=== PATIENT | male | born 1995 | race Two or more races ===

== ENCOUNTER 2025-06-15 14:25 | Emergency (ER) | payer MEDICAID, SELFPAY ==
[2025-06-15 14:26] VITALS: BMI 33.3
[2025-06-15 15:16] VITALS: BP 131/74; PULSE 83; RESP 18; TEMP 37.1; O2SAT 96
--- NOTE | 2025-06-15 15:21 | EDNOTE_ITS ---
ED Skin Abcess FB-RME/HPI General Chief complaint: Skin/Abscess/Foreign Body Stated complaint: SKIN ABCESS LLQ Time Seen by Provider: 06/15/25 14:44 Arrival date/time: 06/15/25 14:25 RME / HPI RME / HPI narrative: 29-year-old male patient came in for evaluation regarding redness to the left lower quadrant abdominal wall. Incident happened about 3 days prior to ER visit as worsening redness, after patient self inject himself with testosterone. Patient has been injecting himself testosterone for a while now. But today noticed first time having this redness and swelling. Patient denies any fever. Denies any abdominal pain. Denies any vomiting. Patient is worried about abscess or cellulitis of the abdominal wall. No history of diabetes. Tetanus vaccination is unknown. Related Data Previous Rx's ?Medication ?Instructions ?Recorded cephalexin 500 mg capsule 500 mg PO Q6H 7 days #28 cap s 06/15/25 ibuprofen 800 mg tablet 800 mg PO Q8H PRN pain #30 t abs 06/15/25 sulfamethoxazole 800 1 tab PO BID #14 tabs mg-trimethoprim 160 mg tablet (Bactrim DS) Allergies Allergy/AdvReac Type Severity Reaction Status Date / Time No Known Allergies Allergy Verified 06/15/25 14:30 Review of Systems Review of Systems Narrative Review of Systems: Review of system reviewed and within normal limits except mentioned in HPI ED Exam Narrative Physical exam: VITAL SIGNS: Reviewed. GENERAL APPEARANCE: Alert and interactive, follows commands, no acute distress, HEAD AND FACE: Non-traumatic. ENT: PERRL, pink conjunctivitis, eyelid no trauma, Mucous membrane moist. NECK: Supple, nontender, no nuchal rigidity. CHEST: No tenderness, no crepitus, no paradoxical movement, no retractions. LUNGS: Clear, well ventilated, symmetric, no rales, no wheezing, no ronchi, no stridor, good breath sounds bilaterally. HEART: Regular rate, regular rhythm, no murmur, no gallops. ABDOMEN: Soft, positive bowel sounds, nondistended, no guarding, 5 x 6 cm redness, left lower abdominal wall none fluctuant with mild tenderness, no rebound, no masses, RECTAL: Deferred. GENITAL: Deferred. NEUROLOGICAL: Gross motor function intact sensory function intact, Appropriate for age. MUSCULOSKELETAL: low back nontender, full range of motion. EXTREMITIES: Nontender, full range of motion. SKIN: Color pink, dry, no rash, no lacerations, no abrasions, no contusions. LYMPHATICS: Deferred. Course Quality Measures none Orders Category Date Time Status Ibuprofen Tab [Motrin Tab] Med 06/15/25 15:20 Once 800 mg PO X1 ONE TET,DIP/PERT AC (Adult)-Tdap [Boostrix Adult (Tdap) Med 06/15/25 15:20 Once Vacc] 0.5 ml IMI .ONCE ONE Trimethoprim/Sulfa 160/800 Ds [Bactrim Ds] Med 06/15/25 15:20 Once 1 tab PO X1 ONE cephALEXin [Keflex] Med 06/15/25 15:20 Once 500 mg PO X1 ONE Vital Signs Vital signs: Vital Signs Temperature 98.7 F 06/15/25 15:16 Pulse Rate 83 06/15/25 15:16 Respiratory Rate 18 06/15/25 15:16 Blood Pressure 131/74 H 06/15/25 15:16 Pulse Oximetry (%) 96 06/15/25 15:16 Oxygen Delivery Method Room Air 06/15/25 15:16 Skin / Abscess / Foreign Body MDM Narrative MDM Narrative:: 29-year-old male patient came in for evaluation regarding redness to the left lower quadrant abdominal wall. Incident happened about 3 days prior to ER visit as worsening redness, after patient self inject himself with testosterone. Patient has been injecting himself testosterone for a while now. But today noticed first time having this redness and swelling. Patient denies any fever. Denies any abdominal pain. Denies any vomiting. Patient is worried about abs cess or cellulitis of the abdominal wall. No history of diabetes. Tetanus vaccination is unknown. Clinically patient is having cellulitis of the left lower abdominal wall nonfluctuant I&D is not needed at this time. Patient will be started on antibiotic and advised to come back in 2 to 3 days for possible I&D. Patient agrees with the plan. Imaging or workup is not needed at this time. Stable for discharge home Patient data External records reviewed:: None Clinical information provided by:: patient Social determinants that could affect healthcare access:: none Patient has the following chronic illnesses:: None How is presenting disease/condition affected by chronic disease/condition?: no chronic disease Evaluation data The following diagnostics were reviewed and interpreted by me:: other (specify) (None) Lab and/or radiology exams considered but not ordered:: None Interpretation Summary: None Medications / Prescriptions Medications or Prescriptions considered but not ordered:: None Medication administrations:: Medication Administration History Cephalexin HCl (Cephalexin 250 Mg Capsule) 500 mg PO X1 ONE Stop: 06/15/25 15:21 Diphtheria/Tetanus/Acell Pertussis (Diphth,Pertuss(Acell),Tet Vac 0.5 Ml Syr- Adult) 0.5 ml IMi .ONCE ONE Stop: 06/15/25 15:21 Ibuprofen (Ibuprofen Tab 400 Mg Tablet) 800 mg PO X1 ONE Stop: 06/15/25 15:21 Trimethoprim/Sulfamethoxazole (Trimethoprim/Sulfa 160/800 Ds Tablet) 1 tab PO X1 ONE Stop: 06/15/25 15:21 Keflex Bactrim Motrin and Boostrix Consultations Consultation(s) initiated? (list below): No Diagnosis Skin/Abscess Differential Diagnosis: abscess of skin or subcutaneous tissue, cellulitis and insect bites Most likely diagnosis given after review of the tests above:: Abdominal wall cellulitis Admission Indicated Admission indicated?: not indicated Admission Request Was there a request for admission?: No Disposition Plan Disposition Plan: Discharge Discharge Attestation Discharge Attestation: The patient and all family members were given an opportunity to ask questions and understood the discharge instructions. Discharge instructions specifically effects, indications for sooner follow up or return to the emergency department, and the expected course of current diagnosis. Patient condition: Stable Discharge Plan Plan Patient Disposition: HOME (Self Care) Discharge Disposition comment: Stable Prescriptions/Referrals Prescriptions/Med Rec: New ibuprofen 800 mg tablet 800 mg PO Q8H PRN (Reason: pain) Qty: 30 0RF sulfamethoxazole-trimethoprim [Bactrim DS] 800-160 mg tablet 1 tab PO BID Qty: 14 0RF cephalexin 500 mg capsule 500 mg PO Q6H 7 Days Qty: 28 0RF Problem List Clinical Impression: Cellulitis of left abdominal wall Patient/Caregiver Discharge Instructions Discharge Activity: activity as tolerated Education Materials: Discharge Instructions for Cellulitis Additional Instructions: Thank you for the opportunity for serving you today. You are stable for discharged . You are advised to: Follow-up with your PCP in 1 to 2 days Return to ED for worsening of symptoms Increase oral fluids Take medication as prescribed Return to emergency room in 2 to 3 days for possible I&D Print Language: Vietnamese Stand Alone Forms: Nirmala Award Info., Patient Portal Info Letter PRERNA/[employer] Supervising Physician PRERNA/ANDREA Supervising Physician: MD Cindy
[2025-06-15] MEDS: TRIMETHOPRIM/SULFA 160/800 DS TABLET 1 TAB PO (15:37)
[2025-06-15] MEDS: IBUPROFEN TAB 400 MG TABLET 800 MG PO (15:38)
[2025-06-15] MEDS: DIPHTH,PERTUSS(ACELL),TET VAC 0.5 ML SYR- ADULT IMi (15:39)
== END 2025-06-15 16:38 | disposition home or self-care (01) ==
LOC: SERX 15:50
PROVIDERS: Emergency Provider Emergency Medicine
DX: L03.311 Cellulitis of abdominal wall (principal); Z23 Encounter for immunization
CPT/HCPCS: 90471; 90715; 99283; A9270

== ENCOUNTER 2025-09-09 14:00 | Emergency (ER) | payer MEDICAID, SELFPAY ==
--- NOTE | 2025-09-09 14:41 | PD.EDADULT ---
ED General RME/HPI General Chief complaint: Abdominal Pain Stated complaint: DIARRHEA, BLACK THIS AM, UPPER ABD PAIN, CHILLS Time Seen by Provider: 09/09/25 14:40 Arrival date/time: 09/09/25 14:00 CC: Nausea vomiting diarrhea since midnight. HPI ongoing with diarrhea every 15 minutes. Patient had threw up twice, last time at 5 1 AM this morning. No other family members are ill patient is borderline tachycardic with normal pressure. Patient appears not in any acute distress. No OTC medicines taken. Related Data Previous Rx's ?Medication ?Instructions ?Recorded ibuprofen 800 mg tablet 800 mg PO Q8H PRN pain #30 tabs 06/15/25 sulfamethoxazole 800 1 tab PO BID #14 tabs 06/15/25 mg-trimethoprim 160 mg tablet (Bactrim DS) ondansetron 4 mg disintegrating 4 mg PO Q8H #10 tabs 09/09/25 tablet Allergies Allergy/AdvReac Type Severity Reaction Status Date / Time No Known Allergies Allergy Verified 09/09/25 14:04 Review of Systems Review of Systems Narrative Review of Systems: GEN: No fever, no chills, no weight loss EYES: No discharge, no visual changes, no pain HEENT: No ear pain, no congestion, no sore throat PULM: No shortness of breath, no cough, no congestion CV: No chest pain, no dyspnea on exertion, no palpitations GI: + nausea, + vomiting, + diarrhea, no pain, no constipation : No frequency, no urgency, no dysuria MUSC/SKEL: No joint pain, no back pain SKIN: No rash PSYCH: No hallucinations, no depression HEME/LYMPH: No easy bleeding or bruising tendencies NEURO: No weakness, no headache Course Course Course Narrative: There is no acute finding. Patient will be discharged home Quality Measures none Orders Category Date Time Status B-Type Natriuretic Peptide Stat Lab 09/09/25 14:55 Completed CBC Stat Lab 09/09/25 14:55 Completed Comprehensive Metabolic Panel Stat Lab 09/09/25 14:55 Completed Drug Screen,Urine Stat Lab 09/09/25 14:41 Ordered Lipase Stat Lab 09/09/25 14:55 Completed Magnesium Stat Lab 09/09/25 14:55 Completed Partial Thromboplastin Time Stat Lab 09/09/25 14:55 Completed Prothrombin Time with INR Stat Lab 09/09/25 14:55 Completed Urinalysis, C/S if Indicated Stat Lab 09/09/25 14:41 Ordered Ondansetron Odt [Zofran Odt] Med 09/09/25 14:42 Discontinued 4 mg PO X1 ONE Vital Signs Vital signs: Vital Signs Temperature 98.1 F 09/09/25 14:46 Pulse Rate 96 09/09/25 14:46 Respiratory Rate 18 09/09/25 14:46 Blood Pressure 126/84 09/09/25 14:46 Pulse Oximetry (%) 97 09/09/25 14:46 Oxygen Delivery Method Room Air 09/09/25 14:46 Discharge Plan Plan Patient Disposition: HOME (Self Care) Patient condition on transfer: Stable Prescriptions/Referrals Prescriptions/Med Rec: New ondansetron 4 mg tablet,disintegrating 4 mg PO Q8H Qty: 10 0RF No Action ibuprofen 800 mg tablet 800 mg PO Q8H PRN (Reason: pain) Qty: 30 0RF sulfamethoxazole-trimethoprim [Bactrim DS] 800-160 mg tablet 1 tab PO BID Qty: 14 0RF Referrals: Ever (KAILA)Leila FNP [Primary Care Provider] - In 1 week Problem List Clinical Impression: Nausea & vomiting, Diarrhea Patient/Caregiver Discharge Instructions Education Materials: ED Vomiting (Adult), ED Vomiting and Diarrhea ... Additional Instructions: Rest eat bland foods take the medication as needed for nausea. Follow-up with your primary care doctor. Print Language: Polish Stand Alone Forms: Nirmala Award Info., Patient Portal Info Letter, Work/School Release PRERNA/ANDREA Supervising Physician PRERNA/ANDREA Supervising Physician: Ashley Spencer ENP [facility] Clinical Information Provided by: patient Medical Records reviewed [facility] Meds/Rx considered, not ordered None Labs/Rad/Tests considered, not ordered None Chronic Illness/Social Conditions which may negatively complicate care or outcome(s)-explain: None or not applicable EKG EKG not done Labs Labs: interpreted by il Lab(s) Interpretation(s): CBC shows mild leukocytosis of 12.3 no anemia or thrombocytopenia Coags within acceptable limits CMP shows no significant electrolyte imbalances renal impairment transaminitis or T. bili elevation. Imaging Imaging interpretation: none Medication Administration(s) Medication Administration History Discontinued Medications Ondansetron HCl (Ondansetron Odt 4 Mg Tabrap) 4 mg PO X1 ONE; Protocol Stop: 09/09/25 14:43 Last Admin: 09/09/25 16:07 Dose: 4 mg Documented By: LP Diagnosis Differential Diagnosis ED Complaint MDM: Gastritis, food poisoning, pancreatitis, cholelithiasis
[2025-09-09 14:46] VITALS: BP 126/84; PULSE 96; RESP 18; TEMP 36.7; O2SAT 97; BMI 30.1
[2025-09-09 15:23] LABS: Basophils # (Auto) 0.0 Thou/mm3 (0.0-0.2); Basophils % (Auto) 0 % (0-2.5); Eosinophils # (Auto) 0.0 Thou/mm3 (0.0-0.5); Eosinophils % (Auto) 0 % (0-10); Hematocrit 50.0 % (41.0-53.0); Hemoglobin 16.9 g/dL (13.5-16.0); Immature Granulocytes Auto 0.04 Thou/mm3 (0.00-0.00); Lymphocytes # (Auto) 0.6 Thou/mm3 (1.0-4.8); Lymphocytes % (Auto) 5 % (10-50); Mean Corpuscular HGB Conc 33.8 g/dl (31.0-37.0); Mean Corpuscular Hemoglobin 28.7 pg (25.0-35.0); Mean Corpuscular Volume 85 fL (80-100); Monocytes # (Auto) 0.5 Thou/mm3 (0.0-0.8); Monocytes % (Auto) 4 % (0-12); Neutrophils # (Auto) 11.1 Thou/mm3 (1.8-7.7); Neutrophils % (Auto) 91 % (37-80); Nucleated Red Blood Cell # 0.00 Thou/mm3 (0.00-0.00); Nucleated Red Blood Cell % 0 /100 WBC (0); Platelet Count 229 Thou/mm3 (140-440); RDW Standard Deviation 38.8 fL (35.1-43.9); Red Blood Count 5.89 Miln/mm3 (4.50-5.90); White Blood Count 12.3 Thou/mm3 (3.8-10.6)
[2025-09-09 15:44] LABS: INR 1.1 (0.9-1.3); Partial Thromboplastin Time 28.3 Seconds (22.0-36.0); Prothrombin Time 11.4 Seconds (9.0-12.2)
[2025-09-09 15:46] LABS: Alanine Aminotransferase 25 U/L (10-49); Albumin, Serum 4.8 gm/dL (3.5-5.0); Albumin/Globulin Ratio 1.7 (1.2-2.2); Alkaline Phosphatase 78 U/L (46-116); Anion Gap 11 (7-16); Aspartate Amino Transferase 19 U/L (0-34); BUN/Creatinine Ratio 14 Ratio (12-20); Bilirubin,Total 0.9 mg/dL (0.3-1.2); Blood Urea Nitrogen 14 mg/dL (9-23); Calcium 8.8 mg/dL (8.3-10.6); Calcium (Corrected) 8.8 mg/dL (8.5-10.1); Carbon Dioxide 26.0 mMol/L (20.0-31.0); Chloride 104 mMol/L (98-107); Creatinine (Component) 1.0 mg/dL (0.6-1.3); Estimated Creatinine Clearance 118.7 mL/min (>60); Globulin 2.8 gm/dL (2.3-3.5); Glucose 96 mg/dL (74-106); Lipase 31 U/L (12-53); Magnesium 1.8 mg/dL (1.6-2.6); Osmolality,Calculated 281 (275-295); Potassium 3.9 mMol/L (3.4-5.1); Sodium 141 mMol/L (136-145); Total Protein 7.6 gm/dL (5.7-8.2); eGFR > 60 See Note
[2025-09-09 15:53] LABS: B-Type Natriuretic Peptide < 20 pg/mL (0-100)
[2025-09-09] MEDS: ONDANSETRON ODT 4 MG TABRAP PO (16:07)
== END 2025-09-09 16:24 | disposition home or self-care (01) ==
PROVIDERS: Registered Nurse General Practice; Emergency Provider Family Medicine; PCP Nurse Practitioner Primary Care
DX: R19.7 Diarrhea, unspecified (principal); R11.2 Nausea with vomiting, unspecified
CPT/HCPCS: 36415; 80053; 80307; 81001; 83690; 83735; 83880; 85025; 85610; 85730; 99282; Q0162